=== PATIENT | female | born 1945 | race Caucasian/White ===

== ENCOUNTER → 2017-11-01 10:37 | Outpatient (CLI) | payer MEDICARE, OTHER ==
[2016-05-16 12:19] VITALS: BMI 30.2
[~2017-11-01 10:37] MED LIST: ALENDRONATE SOD70 MG PO; BAYER CHEWABLE81 MG PO; CITRACAL + D E1 EACH PO; ELIQUIS5 MG PO; HYDROCODON-ACE1 EAC7 PO; HYDROCODONE-APA1 TAB PO; KLOR-CON 88 MEQ PO; KLOR-CON M2020 MEQ PO; METOPROLOL TART50 MG PO; PRADAXA150 MG PO; PRAVACHOL40 MG PO; PRILOSEC20 MG PO; VITAMIN C250 MG PO; ZESTORETIC 20/21 TAB PO; ZESTRIL20 MG PO
== END | disposition home or self-care (01) ==
LOC: D.CT 10-31 15:00
DX: R51 Headache (principal)

== ENCOUNTER 2017-11-21 12:25 | Emergency (ER) | payer MEDICARE, OTHER ==
[2016-05-16 12:19] VITALS: BMI 30.2
[2017-11-21 13:43] LABS: ALBUMIN 3.5 g/dL (3.4-5.0); ALKALINE PHOSPHATASE 91 U/L (46-116); ALT (SGPT) 26 U/L (10-68); CALC OSMOLALITY 276 mosm/kg (275-300); CALCIUM 9.2 mg/dL (8.5-10.1); CARBON DIOXIDE 28.7 mmol/L (21.0-32.0); CHLORIDE - SERUM 101 mmol/L (98-107); CREATININE - SERUM 0.9 mg/dL (0.6-1.3); GLUCOSE 108 mg/dL (74-106); POTASSIUM - SERUM 3.5 mmol/L (3.5-5.1); PROTEIN - SERUM 7.5 g/dL (6.4-8.2); SODIUM 138 mmol/L (136-145); UREA NITROGEN 13 mg/dL (7-18); eGFR NON AFRICAN AMERICAN 65 mL/min (90-120)
[2017-11-21 13:46] LABS: BASOPHILS 0.6 % (0-2); EOSINOPHILS 1.5 % (0-7); HEMATOCRIT 39.2 % (36.0-48.0); HEMOGLOBIN 12.6 g/dL (12-16); IMMATURE GRANULOCYTES 0.2 % (0-5); LYMPHOCYTES 21.1 % (15-50); MCH 27.8 pg (26.0-34.0); MCHC 32.1 g/dL (31.0-37.0); MCV 86.3 fL (80.0-100.0); MEAN PLATELET VOLUME 10.9 fL (7.4-10.4); MONOCYTES 7.2 % (2-11); NEUTROPHILS 69.4 % (40-80); PLATELET COUNT 253 10x3/uL (130-400); RBC 4.54 10x6/uL (4.00-5.40); RDW 14.6 % (11.5-14.5); WBC 8.2 10x3/uL (4.8-10.8)
[2017-11-21 13:51] LABS: INR 1.22 (0.85-1.17)
[2017-11-21 13:54] LABS: CKMB 0.7 U/L (0.0-3.6); CREATINE KINASE 64 UL (21-215)
[2017-11-21 13:57] LABS: TROPONIN-I < 0.017 ng/mL (0.000-0.060)
[2017-11-21 16:44] LABS: APPEARANCE CLEAR (CLEAR); BILIRUBIN NEGATIVE (NEGATIVE); COLOR YELLOW (YELLOW); GLUCOSE NEGATIVE (NEGATIVE); KETONE NEGATIVE (NEGATIVE); NITRITE NEGATIVE (NEGATIVE); PROTEIN NEGATIVE (NEGATIVE); UROBILINOGEN NORMAL (NORMAL)
== END 2017-11-21 17:35 | disposition home or self-care (01) ==
LOC: D.ER 12:25
PROVIDERS: Family Medicine; Nurse Practitioner Family
DX: R00.2 Palpitations (principal); I50.9 Heart failure, unspecified; Z95.0 Presence of cardiac pacemaker; I48.91 Unspecified atrial fibrillation; I49.3 Ventricular premature depolarization; I10 Essential (primary) hypertension

== ENCOUNTER → 2018-01-09 16:21 | Outpatient (CLI) | payer MEDICARE, OTHER ==
[2016-05-16 12:19] VITALS: BMI 30.2
== END | disposition home or self-care (01) ==
LOC: D.MAMMO 12-13 11:15
DX: Z12.31 Encounter for screening mammogram for malignant neoplasm of breast (principal)

== ENCOUNTER 2019-06-10 08:00 | Outpatient (CLI) | payer MEDICARE, OTHER ==
[2016-05-16 12:19] VITALS: BMI 30.2
== END 2019-06-10 23:59 | disposition home or self-care (01) ==
LOC: D.MAMMO 08:00
PROVIDERS: ATTEND Emergency Medicine
DX: Z12.31 Encounter for screening mammogram for malignant neoplasm of breast (principal)

== ENCOUNTER → 2020-08-11 09:51 | Outpatient (CLI) | payer MEDICARE, OTHER ==
[2016-05-16 12:19] VITALS: BMI 30.2
== END | disposition home or self-care (01) ==
LOC: D.RAD 09:51
PROVIDERS: ATTEND Orthopaedic Surgery
DX: M75.122 Complete rotator cuff tear or rupture of left shoulder, not specified as traumatic (principal)